=== PATIENT | male | born 2005 | race Caucasian/White ===

== ENCOUNTER 2024-07-06 23:14 | Emergency (ER) | payer MEDICAID ==
[~2024-07-06] VITALS: Ht 172.7 cm; Wt 68.0 kg
[2024-07-06 23:46] VITALS: BP_SYST 126; PULSE 67; RESP 18; TEMP 97.9; O2SAT 100
[2024-07-07] MEDS ORDERED: LIDOCAINE 1%, 20 ML MDV 20 ML ONE (03:20)
[2024-07-07 03:44] VITALS: BP_SYST 124; PULSE 69; RESP 18; TEMP 98.1; O2SAT 100
[2024-07-08] MEDS ORDERED: IBUP-1971 PO (10:40)
[2024-07-08] MEDS ORDERED: NIRM1TAB7 PO (10:40)
== END 2024-07-07 03:42 | disposition home or self-care (01) ==
LOC: SED 23:14
DX: S61.412A Laceration without foreign body of left hand, initial encounter (principal); Z88.1 Allergy status to other antibiotic agents; W26.0XXA Contact with knife, initial encounter; Y93.89 Activity, other specified; Y92.89 Other specified places as the place of occurrence of the external cause; Y99.8 Other external cause status
CPT/HCPCS: 99282; J2001

== ENCOUNTER 2024-07-08 08:45 | Emergency (ER) | payer MEDICAID ==
[~2024-07-08] VITALS: Ht 170.2 cm; Wt 68.0 kg
[2024-07-08 08:56] VITALS: BP_SYST 121; PULSE 112; RESP 15; TEMP 102.4; O2SAT 98
[2024-07-08 09:58] LABS: INFLUENZA TYPE A Negative (NEGATIVE); INFLUENZA TYPE B NEGATIVE (NEGATIVE)
[2024-07-08] MEDS ORDERED: IBUP-1971 PO (10:40)
[2024-07-08] MEDS ORDERED: NIRM1TAB7 PO (10:40)
[2024-07-08 10:58] VITALS: BP_SYST 121; PULSE 112; RESP 15; TEMP 102.4; O2SAT 98
== END 2024-07-08 10:54 | disposition home or self-care (01) ==
LOC: SED 08:45
DX: U07.1 COVID-19 (principal); J40 Bronchitis, not specified as acute or chronic; Z88.1 Allergy status to other antibiotic agents
CPT/HCPCS: 36415; 71045; 99284

== ENCOUNTER 2024-07-18 20:14 | Emergency (ER) | payer MEDICAID ==
[~2024-07-18] VITALS: Ht 172.7 cm; Wt 68.0 kg
[~2024-07-18 20:14] MED LIST: IBUP-1971 PO; NIRM1TAB7 PO
[2024-07-18 20:31] VITALS: PULSE 76; RESP 16; TEMP 98.2; O2SAT 98
[2024-07-18 21:15] VITALS: BP_SYST 133; PULSE 76; RESP 16; TEMP 98.2; O2SAT 98
== END 2024-07-18 21:15 | disposition home or self-care (01) ==
LOC: SED 20:14
DX: S61.412D Laceration without foreign body of left hand, subsequent encounter (principal); Z48.02 Encounter for removal of sutures; X58.XXXD Exposure to other specified factors, subsequent encounter
CPT/HCPCS: 99281